=== PATIENT | male | born 1935 | race Caucasian/White ===

== ENCOUNTER 2019-08-15 08:13 | Outpatient (RCR) | payer MEDICARE, SELFPAY ==
[2019-08-15 08:19] VITALS: BMI 24.5
== END 2019-11-13 23:59 | disposition home or self-care (01) ==
LOC: ANHDMC 08:13
DX: N18.3 Chronic kidney disease, stage 3 (moderate) (principal); Z71.3 Dietary counseling and surveillance
CPT/HCPCS: 97802

== ENCOUNTER 2019-12-12 07:53 | Outpatient (RCR) | payer MEDICARE, SELFPAY ==
[2019-12-12 08:02] VITALS: BMI 24.5
[2019-12-12 08:05] VITALS: BMI 24.5
== END 2020-03-11 23:59 | disposition home or self-care (01) ==
LOC: ANHDMC 07:53
DX: N18.3 Chronic kidney disease, stage 3 (moderate) (principal); Z71.3 Dietary counseling and surveillance
CPT/HCPCS: 97802

== ENCOUNTER 2022-02-11 11:53 | Outpatient (CLI) | payer MEDICARE, SELFPAY ==
--- NOTE | ~2022-02-11 | US_ITS ---
EXAMINATION: US venous doppler UE DATE: 02/11/2022 12:41 INDICATION: Bilateral upper limb swelling TECHNIQUE: Grayscale images without and with compression and Doppler images of the bilateral upper ex tremity veins were obtained. COMPARISON: None. FINDINGS: The right internal jugular vein, subclavian vein, axillary vein, brachial vein, basilic vein, cephali c vein, radial vein, and ulnar vein are patent. The left internal jugular vein, subclavian vein, axillary vein, brachial vein, basilic vein, cephalic vein, radial vein, and ulnar vein are patent. IMPRESSION: 1. Patent bilateral upper extremity veins. No evidence of venous thrombosis. Reviewed, dictated and finalized at location B.
== END 2022-02-11 11:54 | disposition home or self-care (01) ==
PROVIDERS: PCP Student in an Organized Health Care Education/Training Program; Visit Provider Student in an Organized Health Care Education/Training Program
DX: R22.33 Localized swelling, mass and lump, upper limb, bilateral (principal)
CPT/HCPCS: 93970

== ENCOUNTER 2022-04-27 07:19 | Emergency (ER) | payer MEDICARE, SELFPAY ==
[2022-04-27 07:24] VITALS: BP 151/74; PULSE 89; RESP 16; TEMP 36.4; O2SAT 99
[2022-04-27] MEDS: LORATADINE 10 MG TABLET PO (07:45)
[2022-04-27] MEDS: FAMOTIDINE 20 MG/2 ML VIAL IV PUSH (07:45)
[2022-04-27] MEDS: methylPREDNISolone SOD SUCC 125 MG VIAL IV PUSH (07:45)
--- NOTE | 2022-04-27 07:49 | ED.ALLEREA ---
HPI - Allergic Reaction General Chief complaint: Allergic Reaction Stated complaint: facial swelling Time Seen by Provider: 04/27/22 07:21 Source: RN notes reviewed History of Present Illness HPI narrative: Patient presents emergency department from home for swelling of his lips. Patient states that he noticed swelling of his upper and lower lips last night he states that the swelling is mildly decreased from last night but still present this morning came in for further evaluation states has had no swelling of the tongue he denies any shortness of breath denies any dental pain or facial pain fevers or chills or any other symptoms patient does state he is on lisinopril and did take his medication this morning Related Data Home Medications Medication Instructions Recorded Confirmed amlodipine 5 mg tablet 5 mg PO 04/27/22 atorvastatin 20 mg tablet 20 mg PO 04/27/22 lisinopril 10 mg tablet 10 mg PO 04/27/22 triamterene 37.5 1 tablet PO 04/27/22 mg-hydrochlorothiazide 25 mg tablet Allergies Allergy/AdvReac Type Severity Reaction Status Date / Time Penicillins Allergy Unknown Unknown Verified 04/27/22 07:44 bee sting Allergy Severe Anaphylactic Uncoded 04/27/22 07:44 Shock Review of Systems Review of Systems: Gen.: Denies fevers or chills ENT: See HPI Respiratory: Denies shortness of breath or cough CV: Denies chest pain or palpitations GI: Denies abdominal pain nausea, emesis Musculoskeletal: Denies back pain or muscle pain Neuro: Denies headache or numbness Skin: Denies rash Except as documented, all other systems reviewed and negative [facility] Past Medical History Medical History (Updated 04/27/22 @ 10:54 by Dontrell Reynolds DO) Hypertension Social History Social History Smoking status: Current every day smoker Alcohol intake: current Spiritual care concerns: No Exam Narrative: APPEARANCE: No acute distress, nontoxic, resting in bed EYES: EOMI HEENT: Normocephalic, atraumatic, nares patent swelling of the upper and lower lips no overlying erythema no skin lesions seen in the airway is patent or mucosa moist no swelling of the tongue uvula midline voice normal RESPIRATORY: No respiratory distress Clear to auscultation bilaterally with no rhonchi wheezing or rales. CARDIOVASCULAR: Regular rate and rhythm without murmurs rubs or gallops. ABDOMINAL: Soft, nontender, nondistended, no rebound or guarding MUSCULOSKELETAl: Moves all extremities. No clubbing, cyanosis or edema. NEURO: Awake and alert. Following commands, speech normal, no focal deficits SKIN:: Warm, dry. No rashes lesions or abrasions PSYCHIATRIC: Normal affect/mood, Course Course Emergency Course: Patient swelling has improved since stay in ED no swelling of the tongue no shortness of breath Discussed with patient's PCP Dr. Ramirez. At this time will we will stop lisinopril and increase amlodipine to 10 mg daily Discussed with patient results of workup and diagnosis. Discussed need for follow-up with primary care, proper use of medication, and reasons to return to the emergency department. Patient understands and agrees to current treatment plan Vital Signs Vital signs: Vital Signs Temperature 97.6 F 04/27/22 07:24 Pulse Rate 89 04/27/22 07:24 Respiratory Rate 16 04/27/22 07:24 Blood Pressure 151/74 H 04/27/22 07:24 Pulse Oximetry 99 04/27/22 07:24 Oxygen Delivery Room Air 04/27/22 07:24 Temperature 97.6 F 04/27/22 07:24 Pulse Rate 64 04/27/22 08:33 Respiratory Rate 20 04/27/22 08:33 Blood Pressure 145/64 H 04/27/22 08:33 Pulse Oximetry 96 04/27/22 08:33 Oxygen Delivery Room Air 04/27/22 07:24 Discharge Plan Discharge Clinical Impression: Angioedema Patient Disposition: Home, Self-Care Condition: Stable Instructions: Antibiotic Form, Angioedema (ED) Additional Instructions: Return for increased swelling
[2022-04-27 08:33] VITALS: BP 145/64; PULSE 64; RESP 20; O2SAT 96
== END 2022-04-27 11:11 | disposition home or self-care (01) ==
PROVIDERS: Emergency Provider Emergency Medicine; PCP Student in an Organized Health Care Education/Training Program
DX: T78.3XXA Angioneurotic edema, initial encounter (principal); I10 Essential (primary) hypertension
CPT/HCPCS: 96374; 96375; 99284; A9270; J2930

== ENCOUNTER 2022-05-23 11:18 | Observation (INO) | payer MEDICARE, SELFPAY ==
[2022-05-23] VITALS (18 sets, daily range): BP systolic 113–151; BP diastolic 50–71; PULSE 60–88; RESP 14–22; TEMP 36–36.3; O2SAT 83–100; BMI 22.8
--- NOTE | ~2022-05-23 | XR_ITS ---
XR chest 2V DATE: 05/23/2022 11:58 INDICATION: Epigastric pain TECHNIQUE: PA and lateral views COMPARISON: None FINDINGS: Normal heart size. No hilar or mediastinal enlargement. Bibasilar infiltrate, atelectasis or fibrotic changes. The lungs otherwise appear clear. No pleural e ffusion or pulmonary vascular congestion or pneumothorax. There is diffuse idiopathic skeletal hyperostosis of the thoracic spine and mild thoracolumbar dextro scoliosis. Osteopenia. IMPRESSION: Bibasilar atelectasis, infiltrate or chronic interstitial changes Reviewed, dictated and finalized at location A.
--- NOTE | ~2022-05-23 | CT_ITS ---
EXAMINATION: CT chest abdomen pelvis w con DATE: 05/23/2022 12:52 INDICATION: Epigastric abdominal pain. Hypertension. Smoker. TECHNIQUE: Computed tomography (CT) of the chest, abdomen, and pelvis was performed with 100 CC Omnip aque 350 intravenous contrast. Automated exposure control and iterative reconstruction technique were employed. Exam dose: 545.92 mGy-cm total exam DLP. COMPARISON: 05/23/2022 2 view chest 11/13/2011 CT abdomen pelvis FINDINGS: CHEST CT: Prominent emphysematous changes. There is chronic septal soft tissue thickening and honeycombing invo lving particularly the peripheral lingula and lower lobes. Heart size is within normal range. No pericardial or pleural effusion. No thoracic aortic aneurysm or dissection. There is aortic atherosclerosis. No hilar or mediastinal mass lesion or lymphadenopathy. Calcified right hilar and subcarinal nodes co nsistent with old pulmonary granulomatous disease. Moderate bilateral gynecomastia. ABDOMEN/PELVIS CT: Scattered small hypoattenuating lesions of the liver, measuring up to approximately 8 mm, likely cyst s, but too small to definitively characterize The gallbladder is present. No bowel wall thickening or pericholecystic fluid or fat stranding. No bi le duct or pancreatic duct dilatation. Occasional pancreatic calcifications consistent with chronic pancreatitis. Normal morphology of the adrenal glands. Exophytic 9 mm right renal cyst. No suspicious renal mass lesion or urinary tract calculus or hydrour eteronephrosis is noted on either side. Moderate prostate enlargement and calcification. The urinary bladder are unremarkable except for a Prostate impression at the base. Bilateral fat and small bowel containing inguinal hernias without bowel obstruction. Mild left and right colonic diverticulosis; no CT evidence of diverticulitis. Normal appendix. No bowel obstruction or intraperitoneal free air. There is atherosclerotic calcification of the abdominal aorta, iliac and femoral arteries. No intrape ritoneal or retroperitoneal or pelvic mass lesion or adenopathy or ascites is noted. Prominent degenerative disc disease of the lower cervical spine. Degenerative changes of the thoracic and lumbar spine including diffuse idiopathic skeletal hyperostosis and severe degenerative disc dis ease at L3-4, L4-5 and L5-S1, degenerative change at the apophyseal joints with associated minimal gr shahab 1 anterolisthesis at L4-5.. Bilateral hip osteoarthritis. No suspicious osteolytic or osteoblastic lesions. IMPRESSION: Emphysema Chronic peripheral septal soft tissue thickening and honeycombing involving particularly the lingula and lower lobes Bilateral gynecomastia Probable hepatic cysts 9 mm exophytic right renal cyst Chronic pancreatitis Prostate enlargement Bilateral fat and small bowel containing inguinal hernias without bowel obstruction Reviewed, dictated and finalized at Location A. Reviewed, dictated and finalized at location A. IMPRESSION: Emphysema Chronic peripheral septal soft tissue thickening and honeycombing involving par ticularly the lingula and lower lobes Bilateral gynecomastia Probable hepatic cysts 9 mm exophytic right renal cyst Chronic pancreatitis Prostate enlargement Bilateral fat and small bowel containing inguinal hernias without bowel obstruc tion
--- NOTE | 2022-05-23 11:22 | ECG_ITS ---
Measurements Intervals [place] Rate: 79 P: NM: 0 QRS: 21 QRSD: 93 T: 57 QT: 387 QTc: 445 Interpretive Statements SINUS RHYTHM WITH MARKED FIRST DEGREE AV BLOCK NONSPECIFIC ST & T-WAVE ABNORMALITY- ANT/HIGH LAT LEADS BASELINE ARTIFACT- V4-V6 ABNORMAL ECG NO PREVIOUS ECG AVAILABLE FOR COMPARISON Electronically Signed On 05-23-2022 14:54:49 CDT by Thai Gutierrez D.O.
[2022-05-23 11:51] LABS: Basophils Percent Auto 0.3 % (0.2-1.2); Eosinophils Absolute Auto 0.1 K/mm3 (0-0.3); Eosinophils Percent Auto 2.1 % (0-4.4); Hematocrit 33.4 % (42.0-52.0); Hemoglobin 10.8 g/dL (14.0-18.0); Immature Granulocyte Absolute 0.04 K/mm3 (0.00-0.031); Immature Granulocyte Percent A 0.7 % (0-0.5); Lymphocytes Absolute Auto 1.03 K/mm3 (0.9-3.2); Lymphocytes Percent Auto 17.9 % (18.3-44.2); Mean Corpuscular HGB Conc 32.3 g/dl (32-36); Mean Corpuscular Hemoglobin 31.6 pg (26-34); Mean Corpuscular Volume 97.7 fl (80-100); Mean Platelet Volume 9.6 fl (7.4-10.4); Monocytes Absolute Auto 0.5 K/mm3 (0.1-0.6); Monocytes Percent Auto 9.1 % (2.6-8.5); Neutrophils Percent Auto 69.9 % (45.5-73.1); Platelet Count Result 271 k/mm3 (150-375); Red Blood Count 3.42 M/mm3 (4.6-6.20); Red Cell Distribution Width 15.1 % (11.5-14.5); White Blood Count 5.7 K/mm3 (4.5-10.0)
[2022-05-23 12:01] LABS: Alanine Aminotransferase 34 U/L (6-50); Albumin Level 4.2 g/dL (3.5-5.1); Alkaline Phosphatase 108 U/L (38-126); Anion Gap 13 mmol/L (8-16); Aspartate Amino Transferase 59 U/L (17-59); Bilirubin,Total 0.6 mg/dL (0.2-1.3); Blood Urea Nitrogen 25 mg/dL (9-20); Calcium 9.4 mg/dL (8.4-10.2); Carbon Dioxide 25 mmol/L (22-30); Chloride 104 mmol/L (98-107); Estimated CRCL calculation 33 ml/min; Estimated Glomerular Filt Rate 48; Glucose 172 mg/dL (65-110); Lipase 108 U/L (23-300); Potassium 3.5 mmol/L (3.4-5.0); Sodium 142 mmol/L (137-145)
[2022-05-23 12:02] LABS: Prothrombin Time 12.6 Seconds (11.1-14.7)
[2022-05-23 12:03] LABS: Partial Thromboplastin Time 34.8 SECONDS (22.3-36.8)
[2022-05-23 12:13] LABS: Troponin I < 0.012 ng/mL (0.000-0.034)
--- NOTE | 2022-05-23 12:19 | ED.ABDPAIN ---
HPI - Abdominal Pain General Chief Complaint: Abdominal Pain Stated Complaint: abd pain Time Seen by Provider: 05/23/22 12:19 Source: patient, family and RN notes reviewed Mode of arrival: ambulatory Limitations: no limitations History of Present Illness HPI narrative: 86 years old white male came to the emergency room from home with his daughter by private car complaining of sudden onset of epigastric pain started while driving his car 2 hours ago. Associated with slight labored breathing because of the pain. Patient denies any fever, chills, nausea, vomiting, radiation of pain, chest pain or shortness of breath. Patient reported having similar symptoms in the past and usually resolves in few minutes this 1 lasted longer. History of hypertension, GERD, take baby aspirin once a day and drinks she still here occasionally. He denies any history of abdominal surgery. The pain was 8 out of 10 initially, currently 2 out of 10 without any medications. Related Data Home Medications Medication Instructions Recorded Confirmed amlodipine 5 mg tablet 5 mg PO 04/27/22 atorvastatin 20 mg tablet 20 mg PO 04/27/22 lisinopril 10 mg tablet 10 mg PO 04/27/22 triamterene 37.5 1 tablet PO 04/27/22 mg-hydrochlorothiazide 25 mg tablet Allergies Allergy/AdvReac Type Severity Reaction Status Date / Time Penicillins Allergy Unknown Unknown Verified 05/23/22 11:47 bee sting Allergy Severe Anaphylactic Uncoded 04/27/22 07:44 Shock Review of Systems Review of Systems: All systems reviewed & are unremarkable except as noted in HPI and below PMFSH Past Medical History Medical History Hypertension Social History Social History Smoking status: Current every day smoker Alcohol intake: current Spiritual care concerns: No Exam Narrative: General appearance: Well-developed, well-nourished Skin: Normal color Head: Normocephalic, nontraumatic Eyes: Clear conjunctiva ENT: Oropharynx normal, ears normal, nose normal Neck: Supple, nontender Chest and respiratory: Airway patent, no respiratory distress, no accessory muscle use Heart: Regular rate/rhythm Abdomen: Soft, mild tenderness epigastric area, no guarding or rebound no organomegaly, quiet bowel sounds Vascular: Normal peripheral pulses, normal capillary refill. Musculoskeletal: Normal range of motion, nontender back Neurologic: Alert and oriented ?3, BRIM [employer]ER is normal as tested, no gross motor deficit Course Course Emergency Course: Patient presents with epigastric pain, on physical examination patient had some tenderness in the epigastric area, my concern is GERD, gastritis, duodenitis or esophagitis. Work-up including CT scan of the abdomen and pelvis and chest showed no significant finding to explain patient condition. Coronary artery disease is a possibility, abnormal EKG, no old EKG for comparison, patient to be admitted for observation. Vital Signs Vital signs: Vital Signs Temperature 36.0 C L 05/23/22 11:21 Pulse Rate 83 05/23/22 11:21 Respiratory Rate 16 05/23/22 11:21 Blood Pressure 151/60 H 05/23/22 11:21 Pulse Oximetry 98 05/23/22 11:21 Temperature 36.0 C L 05/23/22 11:21 Pulse Rate 80 05/23/22 11:32 Respiratory Rate 20 05/23/22 11:32 Blood Pressure 133/66 05/23/22 11:32 Pulse Oximetry 100 05/23/22 11:32 MDM - Abdominal Pain Differential Diagnosis Differential diagnosis: Likely abdominal pain, constipation, gastroenteritis, pancreatitis and other (Coronary artery disease) Lab Data Result diagrams: 05/23/22 11:43 05/23/22
[2022-05-23] MEDS: BELLADONNA ALK/PHENOB ELIX 10 ML, MAG HYDROX/ALUMINUM HYD/SIMETH 30 ML, LIDOCAINE HCL 2... PO (14:06)
[2022-05-23] MEDS: SODIUM CHLORIDE 0.9% IV 1,000 ML 500 ML IV CONT (14:14)
--- NOTE | 2022-05-23 14:16 | ECG_ITS ---
Measurements Intervals [place] Rate: 85 P: [place]: 0 QRS: 5 QRSD: 89 T: 59 QT: 378 QTc: 450 Interpretive Statements SINUS RHYTHM WITH MARKED FIRST DEGREE AV BLOCK CANNOT RULE OUT SEPTAL INFARCT, AGE INDETERMINATE NONSPECIFIC ST & T-WAVE ABNORMALITY- ANTEROLAT/HIGH LAT LEADS COMPARED TO ECG 05/23/2022 11:35:01 ABNORMAL ECG NO SIGNIFICANT CHANGES Electronically Signed On 05-23-2022 15:01:05 CDT by Thai Gutierrez D.O.
[2022-05-23 15:09] LABS: Troponin I < 0.012 ng/mL (0.000-0.034)
[2022-05-23] MEDS: ASPIRIN 325 MG TABLET PO (15:34)
[2022-05-23] MEDS: PANTOPRAZOLE SODIUM IV 40 MG VIAL IV PUSH (15:35)
--- NOTE | 2022-05-23 16:13 | ADMGEN ---
This patient, Mat Laura, was admitted to IMU Room 201-01. Patient/family oriented to hospital policies and general routines including ID bracelet, bed and alarms, visiting hours, pain management, procedures, bathroom and other care routines, personal items, smoking policy, room service/diet, and visiting hours. Information on how to activate the Rapid Response Team has been discussed. Patient/Family are encouraged to report perceived risks to care and to ask questions if they do not understand what they are told or what they should do.
--- NOTE | 2022-05-23 16:30 | PM.IMHP ---
H&P: HPI History of Present Illness Date/Time: 05/23/22 16:30 Chief Complaint: Epigastric pain. Narrative: This is a very pleasant 86-year-old male with hypertension, hyperlipidemia, and chronic kidney disease who presented to the emergency department via private vehicle for evaluation of epigastric pain. He awoke with discomfort in the epigastric region yesterday morning which he describes as an aching or throbbing pain. It has persisted but has been manageable without the need for analgesics. The discomfort was still there this morning and he had some associated nausea as well. Nonetheless he was able to go about his day however not long prior to arrival he developed severe pain in epigastric region associated with shortness of breath and worsening nausea. It was relayed that he was having chest pain on arrival to the ER and troponins and EKG were done. His troponins have remained negative however he does have a bit of an abnormal EKG with nonspecific T-wave changes and possible old septal infarct. CT of the abdomen and pelvis showed no acute findings but did mention findings consistent with chronic pancreatitis. To his knowledge he has never had pancreatitis however looking back he has had similar symptoms intermittently for years however he reports that his doctor has not been able to really pinpoint the cause. He does have occasional alcohol in moderation and admits that when he was younger he drank his fair share of alcohol but again he has no known history of pancreatitis. He also denies known history of coronary artery disease and he has not had exertional chest pain, shortness a breath, vomiting, or sweats. At the time my evaluation he feels just fine and has no discomfort whatsoever. Review of Systems Review of Systems: Twelve systems were reviewed. No syncope or near syncope. No fever, chills, or sweats. No recent cold or flu symptoms. No cough. No sick contacts. He has had normal bowel movements. No exertional chest pain. No pleuritic pain, palpitations, orthopnea, paroxysmal nocturnal dyspnea, or lower extremity edema. Except as documented, all other systems were reviewed and are negative. [facility] Past Medical History Medical History Chronic kidney disease COPD with emphysema Hyperlipidemia Hypertension Surgical History Surgical History No history of previous surgery Family History Family History Father Acute myocardial infarction Sibling Colon cancer Sibling Acute myocardial infarction Social History Social History (Updated 05/24/22 @ 13:46 by Alvina Graff PA-C) Social History: Power of deputy prosecuting attorney: John Mae. Code status: Do not resuscitate. Smoking packs per day: 1 Smoking cigarettes per day: 20.0 Years smoked: 52 Smoking pack-years: 52.00 Smoking status: Former smoker Tobacco type: cigarettes Alcohol intake: current Drinks per week: 1 Substance use: never Additional living arrangements comments: The patient lives in his own home in [place] with his rush maxine. Additional occupation/education comments: Retired from the insurance industry. Spiritual care concerns: No Meds Home Medications and Allergies Home Medications Medication Instructions Recorded Confirmed Type amlodipine 5 mg tablet 5 mg PO DAILY 04/27/22 05/23/22 History triamterene 37.5 1 tablet PO DAILY 04/27/22 05/23/22 History mg-hydrochlorothiazide 25 mg tablet aspirin 81 mg capsule 81 mg PO DAILY 05/23/22 05/23/22 History atorvastatin 20 mg tablet 20 mg PO DAILY 05/23/22 05/23/22 History Allergies Allergy/AdvReac Type Severity Reaction Status Date / Time Penicillins Allergy Unknown Unknown Verified 05/23/22 16:15 bee sting Allergy Severe Anaphylactic Uncoded 04/27/22 07:44 Shock Vital Signs V
[2022-05-23 18:06] LABS: Troponin I < 0.012 ng/mL (0.000-0.034)
[2022-05-24] VITALS (11 sets, daily range): BP systolic 116–145; BP diastolic 60–72; PULSE 59–86; RESP 14–20; TEMP 36.2–36.8; O2SAT 94–100
[2022-05-24] MEDS: TRIAMTERENE 37.5 MG/HCTZ 25 MG (MAXZIDE) TABLET 1 TAB PO (08:13)
[2022-05-24] MEDS: ATORVASTATIN 20 MG TABLET PO (08:13)
[2022-05-24] MEDS: ASPIRIN 81 MG ENTERIC TABLET PO (08:14)
[2022-05-24] MEDS: amLODIPine BESYLATE 5 MG TABLET PO (08:14)
[2022-05-24] MEDS: PANTOPRAZOLE SODIUM IV 40 MG VIAL IV PUSH (08:14)
[2022-05-24 09:55] LABS: Hematocrit 30.7 % (42.0-52.0); Hemoglobin 9.9 g/dL (14.0-18.0); Mean Corpuscular HGB Conc 32.2 g/dl (32-36); Mean Corpuscular Hemoglobin 31.4 pg (26-34); Mean Corpuscular Volume 97.5 fl (80-100); Mean Platelet Volume 9.3 fl (7.4-10.4); Platelet Count Result 255 k/mm3 (150-375); Red Blood Count 3.15 M/mm3 (4.6-6.20); Red Cell Distribution Width 15.2 % (11.5-14.5); White Blood Count 4.9 K/mm3 (4.5-10.0)
[2022-05-24 10:04] LABS: Alanine Aminotransferase 110 U/L (6-50); Albumin Level 3.8 g/dL (3.5-5.1); Alkaline Phosphatase 99 U/L (38-126); Anion Gap 9 mmol/L (8-16); Aspartate Amino Transferase 79 U/L (17-59); Bilirubin,Total 0.4 mg/dL (0.2-1.3); Blood Urea Nitrogen 19 mg/dL (9-20); Calcium 8.6 mg/dL (8.4-10.2); Carbon Dioxide 27 mmol/L (22-30); Chloride 104 mmol/L (98-107); Estimated CRCL calculation 31 ml/min; Estimated Glomerular Filt Rate 44; Glucose 107 mg/dL (65-110); Lipase 50 U/L (23-300); Magnesium 2.2 mg/dL (1.6-2.3); Potassium 3.6 mmol/L (3.4-5.0); Sodium 140 mmol/L (137-145)
[2022-05-24 10:41] LABS: Hemoglobin A1C 6.5 % (<5.7)
--- NOTE | 2022-05-24 14:41 | PM.IMPN ---
Progress Note: A&P Assessment and Plan (1) Epigastric pain: Code(s): R10.13 - Epigastric pain Status: Acute (2) Abnormal ECG: Code(s): R94.31 - Abnormal electrocardiogram [ECG] [EKG] Status: Acute (3) Hyperlipidemia: Code(s): E78.5 - Hyperlipidemia, unspecified Status: Acute (4) Chronic kidney disease: Code(s): N18.9 - Chronic kidney disease, unspecified Status: Acute (5) COPD with emphysema: Code(s): J43.9 - Emphysema, unspecified Status: Acute (6) Hyperglycemia: Code(s): R73.9 - Hyperglycemia, unspecified Status: Acute Plan The patient presented to the emergency department today for evaluation of epigastric pain the last 2 days, worse approximately 2 hours prior to arrival. The pain seems to stay right in the epigastric region without any significant radiation and is associated with nausea and today shortness of breath. # epigastric pain: Unclear etiology. Lipase normal LFTs normal no signs of infection. Troponin x to 3 negative. Echo ordered which is awaiting. Abnormal EKG with no acute ischemic changes noted. Continue to monitor spontaneously resolved CT abdomen with findings of chronic pancreatitis. Lipase is normal this is a possibility. # normal EKG echo pending # chronic kidney disease stage 3 baseline creatinine 1.41.5 # COPD prominent emphysematous changes in the seated chest CT # chronic interstitial lung disease with soft tissue thickening and honeycombing follow-up as an outpatient basis # bilateral carpal tunnel syndrome # hypertension # hyperlipidemia # DVT prophylaxis SCDs # code status do not resuscitate Subjective Date/time seen: 05/24/22 14:41 Interval history: HPI:This is a very pleasant 86-year-old male with hypertension, hyperlipidemia, and chronic kidney disease who presented to the emergency department via private vehicle for evaluation of epigastric pain. He awoke with discomfort in the epigastric region yesterday morning which he describes as an aching or throbbing pain. It has persisted but has been manageable without the need for analgesics. The discomfort was still there this morning and he had some associated nausea as well. Nonetheless he was able to go about his day however not long prior to arrival he developed severe pain in epigastric region associated with shortness of breath and worsening nausea. It was relayed that he was having chest pain on arrival to the ER and troponins and EKG were done. His troponins have remained negative however he does have a bit of an abnormal EKG with nonspecific T-wave changes and possible old septal infarct. CT of the abdomen and pelvis showed no acute findings but did mention findings consistent with chronic pancreatitis. To his knowledge he has never had pancreatitis however looking back he has had similar symptoms intermittently for years however he reports that his doctor has not been able to really pinpoint the cause. He does have occasional alcohol in moderation and admits that when he was younger he drank his fair share of alcohol but again he has no known history of pancreatitis. He also denies known history of coronary artery disease and he has not had exertional chest pain, shortness a breath, vomiting, or sweats. At the time my evaluation he feels just fine and has no discomfort whatsoever. 05/24/2022: Feeling better. No further pain in the epigastric area. Troponins been negative. Awaiting echo. Review of Systems Review of Systems: All systems reviewed & are unremarkable except as noted in HPI and below Exam Narrative: General: Well-developed male sitting up in bed no distress. HEENT: Wearing glasses. PERRL, EOMI. Sclera anicteric. Oral mucosa moist. Oropharynx clear. Neck: Supple. No JVD or obvious carotid bruits. Respiratory: Lung sounds are a bit diminished at the bases but are otherwise clear to auscultation. Cardiovascular: Regular rate and r
--- NOTE | 2022-05-24 19:10 | PC.NURSE ---
This patient, Mat Laura, was transferred to [[id number] ] on 05/24/22 at 1905. Personal belongings sent with patient. Appropriate documentation sent with patient.
--- NOTE | 2022-05-25 | ECHO_ITS ---
Patient Info Name: Mat Laura Age: 86 years : 1935 Gender: Male Ht: 68 in Wt: 149 lbs BSA: 1.80 m2 HR: 78 bpm BP: 105 / 74 mmHg Heart Rhythm: Atrial Fibrillation Exam Date: 05/25/2022 10:17 AM Exam Location: [facility] Patient Status: Inpatient Admit Date: 05/23/2022 Staff Ordering Physician: Alvina Graff PA-C Floor Coverer: Christofer Looney RDCS, RT Attending Provider: Maykel Wayne MD Referring Physician: Dajuan CARNEY; Exam Type: CA echo doppler color flow Study Info Indications I10 - Essential (primary) hypertension R94.31 - Abnormal electrocardiogram ECG EKG Complete two-dimensional, color flow and Doppler transthoracic echocardiogram is performed. Strain analysis performed. Summary 1. Complete two-dimensional, color flow and Doppler transthoracic echocardiogram is performed. 2. Left ventricular chamber dimension is normal. 3. Left ventricular systolic function is normal, estimated at 60-65%. 4. There is mild asymmetric septal increased left ventricular wall thickness. 5. The left ventricular diastolic function is indeterminate. 6. Global longitudinal strain is normal at -19 %. 7. Although unable to further characterize, mobile echodensity in right atrium probable remnant Eustachian valve or Chiari network, normal variant. Clinical correlation advised. 8. There is trace aortic valve regurgitation. 9. There is mild mitral valve regurgitation. Left Ventricle Left ventricular chamber dimension is normal. Left ventricular systolic function is normal, estimated at 60-65%. There is mild asymmetric septal increased left ventricular wall thickness. The left ventricular diastolic function is indeterminate. Global longitudinal strain is normal at -19 %. Right Ventricle Right ventricular chamber dimension is normal. Right ventricular systolic function is normal. Left Atria Left atrial chamber dimension is normal. Right Atria Right atrial chamber dimension is normal. Although unable to further characterize, mobile echodensity in right atrium probable remnant Eustachian valve or Chiari network, normal variant. Clinical correlation advised. Aortic Valve The aortic valve is trileaflet. There is mild aortic valve sclerosis. There is no aortic valve stenosis. There is trace aortic valve regurgitation. Pulmonic Valve The pulmonic valve is not well visualized. There is mild pulmonic regurgitation. Mitral Valve The mitral valve has normal leaflets. There is mild mitral valve regurgitation. The mitral valve annulus is mildly calcified. Tricuspid Valve The tricuspid valve leaflets are normal. There is trace tricuspid valve regurgitation. Unable to estimate PA systolic pressure due to poor spectral resolution of tricuspid regurgitant jet velocity. Pericardium/Pleural The pericardium appears normal. There is small pericardial effusion with a small amount of fibrinous material within the pericardial space. Inferior Vena Cava Normal inferior vena cava with >50% collapse upon inspiration consistent with normal right atrial pressure, 5 mmHg. Aorta The aortic root size at the sinus of Valsalva is normal. There is mild aortic atherosclerosis. Left Ventricular Outflow Tract Name Value Normal LVOT 2D
[2022-05-25 04:30] VITALS: BP 105/74; PULSE 64; RESP 18; TEMP 36.5; O2SAT 95
[2022-05-25] MEDS: amLODIPine BESYLATE 5 MG TABLET PO (08:31)
[2022-05-25] MEDS: TRIAMTERENE 37.5 MG/HCTZ 25 MG (MAXZIDE) TABLET 1 TAB PO (08:31)
[2022-05-25] MEDS: ATORVASTATIN 20 MG TABLET PO (08:31)
[2022-05-25] MEDS: ASPIRIN 81 MG ENTERIC TABLET PO (08:31)
[2022-05-25] MEDS: PANTOPRAZOLE SODIUM IV 40 MG VIAL IV PUSH (08:32)
[2022-05-25 08:35] VITALS: BP 141/62; PULSE 73; RESP 20; TEMP 36.2; O2SAT 96
--- NOTE | 2022-05-25 12:40 | PM.DS ---
DS: Admitting Diagnosis Discharge Date 05/25/2022 Admitting Diagnosis epigastric pain DS: Discharge Diagnosis Discharge Diagnosis (1) Epigastric pain: Code(s): R10.13 - Epigastric pain Status: Acute (2) Abnormal ECG: Code(s): R94.31 - Abnormal electrocardiogram [ECG] [EKG] Status: Acute (3) Hyperlipidemia: Code(s): E78.5 - Hyperlipidemia, unspecified Status: Acute (4) Chronic kidney disease: Code(s): N18.9 - Chronic kidney disease, unspecified Status: Acute (5) COPD with emphysema: Code(s): J43.9 - Emphysema, unspecified Status: Acute (6) Hyperglycemia: Code(s): R73.9 - Hyperglycemia, unspecified Status: Acute DS: Summary Hospital Course Hospital Course: The patient presented to the emergency department today for evaluation of epigastric pain the last 2 days, worse approximately 2 hours prior to arrival. The pain seems to stay right in the epigastric region without any significant radiation and is associated with nausea and today shortness of breath. ? # epigastric pain:? Unclear etiology.? Lipase normal LFTs normal no signs of infection.? Troponin x to 3? negative.? Echo reviewed and was unremarkable.? Abnormal EKG with no acute? ischemic changes noted.? Continue to monitor spontaneously resolved CT abdomen with findings of chronic pancreatitis.? Lipase is normal this is a possibility. # normal EKG echo With normal ejection fraction 60-65% mild asymmetric septal increased left ventricular wall thickness. Indeterminate diastolic function. Global longitudinal strain normal at -19% mobile echodensity in right atrium probable remnant is Thatch valve or Chiari network trace AR and mild MR # chronic kidney disease stage 3 baseline creatinine 1.41.5 # COPD prominent emphysematous changes in the seated chest CT # chronic interstitial lung disease with soft tissue thickening and honeycombing follow-up as an outpatient basis # bilateral carpal tunnel syndrome # hypertension # hyperlipidemia # DVT prophylaxis SCDs # code status do not resuscitate Time Spent with Patient Time attestation: Total time spent providing and/or coordinating discharge services: Exam Narrative: General: Well-developed male sitting up in bed no distress. HEENT: Wearing glasses. PERRL, EOMI. Sclera anicteric. Oral mucosa moist. Oropharynx clear. Neck: Supple. No JVD or obvious carotid bruits. Respiratory: Lung sounds are a bit diminished at the bases but are otherwise clear to auscultation. Cardiovascular: Regular rate and rhythm with S1-S2. Chest: No tenderness to palpation of the chest wall. Gastrointestinal: Abdomen is soft, nontender, and nondistended with positive bowel sounds. No guarding or rebound tenderness. Skin: Warm and dry. No rash or lesions on limited exam. Extremities: No cyanosis, clubbing, or edema. Radial and pedal pulses intact. Neurological: Alert. Cranial nerves 2-12 are grossly intact. No gross focal deficits to casual conversation. Psychiatric: Pleasant and cooperative with normal mood and affect. Judgment and insight intact. DS: Data Data Completed and Pending Completed studies during hospitalization: Exam Type: ? ? CA echo doppler color flow Study Info Indications ? ? I10 - Essential (primary) hypertension ? ? R94.31 - Abnormal electrocardiogram ECG EKG Complete two-dimensional, color flow and Doppler transthoracic echocardiogram is performed. ? Strain analysis performed. Account #: ? ? [id number] Summary ? 1. Complete two-dimensional, color flow and Doppler transthoracic echocardiogram is performed. ? 2. Left ventricular chamber dimension is normal. ? 3. Left ventricular systolic function is normal, estimated at 60-65%. ? 4. There is mild asymmetric septal increased left ventricular wall thickness. ? 5. The left ventricular diastolic function is indeterminate. ? 6. Global longitudinal strain is normal at -19 %. ? 7.
== END 2022-05-25 13:15 | disposition home or self-care (01) ==
LOC: ANHED 15:00 → ANHIMU 15:15 → ANH3MED 05-24 18:49
PROVIDERS: Emergency Medicine; Physician Assistant; Admitting Provider Hospitalist; Emergency Provider Emergency Medicine; PCP Student in an Organized Health Care Education/Training Program; Visit Provider Internal Medicine
DX: R10.13 Epigastric pain (principal); R94.31 Abnormal electrocardiogram [ECG] [EKG]; E78.5 Hyperlipidemia, unspecified; J43.9 Emphysema, unspecified; R73.9 Hyperglycemia, unspecified; K21.9 Gastro-esophageal reflux disease without esophagitis; Z79.82 Long term (current) use of aspirin; Z79.899 Other long term (current) drug therapy; J98.11 Atelectasis; N62 Hypertrophy of breast; N28.1 Cyst of kidney, acquired; K40.90 Unilateral inguinal hernia, without obstruction or gangrene, not specified as recurrent; E86.0 Dehydration; I12.9 Hypertensive chronic kidney disease with stage 1 through stage 4 chronic kidney disease, or unspecified chronic kidney disease; N18.30 Chronic kidney disease, stage 3 unspecified; K86.1 Other chronic pancreatitis; J84.9 Interstitial pulmonary disease, unspecified; I34.0 Nonrheumatic mitral (valve) insufficiency; N40.0 Benign prostatic hyperplasia without lower urinary tract symptoms; Z87.891 Personal history of nicotine dependence; Z66 Do not resuscitate
CPT/HCPCS: 36415; 71046; 71260; 74177; 80053; 83036; 83690; 83735; 84484; 85025; 85027; 85610; 85730; 93005; 93306; 96361; 96374; 96376; 99285; A9270; C9113; G0378; J7030; Q9967